=== PATIENT | male | born 1965 | race Caucasian/White ===

== ENCOUNTER → 2017-10-27 | Outpatient (CLI) | payer BC ==
--- NOTE | 2017-10-27 14:20 | MR ---
EXAMINATION TYPE: MR iac wo/w con DATE OF EXAM: 10/27/2017 COMPARISON: NONE HISTORY: Vertigo, Headache TECHNIQUE: Multiplanar, multisequence images of the brain and brainstem is performed without and with IV contras t, utilizing 8 mL intravenous Gadavist, small [id number] high-resolution images obtained through t he internal auditory canals. FINDINGS: Diffusion weighted images demonstrate no evidence of a recent infarct or other diffusion ab normality. There is no extra-axial fluid collection or significant white matter signal abnormality. The ventricular system and cisternal spaces are normal in size and appearance. The brain volume is age appropriate. Midline structures demonstrate normal morphology. The craniocervical junction appears within normal limits. Post contrast images demonstrate no abnormal enhancement. The dural venous sinuses appear pa tent. The visualized sinuses are remarkable for inflammatory change in the ethmoid air cells, and the globes are intact. Semicircular canals and cochlea show a symmetric appearance. IMPRESSION: No significant abnormality is evident within the brain, mild sinus disease
== END | disposition home or self-care (01) ==
LOC: RADMRIMAIN 11:39
PROVIDERS: ATTEND Otolaryngology
DX: R51 Headache (principal)
CPT/HCPCS: 70553; A9581

== ENCOUNTER 2020-09-19 10:21 | Day surgery (SDC) | payer BC, MEDICAID ==
[2020-09-18 08:54] VITALS: BMI 23.8
[~2020-09-19 10:21] MED LIST: LACTATED RINGERS 1,000 ML IV SCH; ONDANSETRON 4 MG/2 ML VIAL IVP PRN
[2020-09-19 10:52] VITALS: TEMP 98.3
[2020-09-19] MEDS ORDERED: LIDOCAINE 1% INJ 10MG/ML (20 ML MDV) ONE (11:56)
[2020-09-19] MEDS ORDERED: PROPOFOL 10 MG/ML 20 ML VIAL IV ONE (11:56)
--- NOTE | 2020-09-19 12:01 | P.GSHP ---
History of Present Illness H&P Date: 09/19/20 Chief Complaint: Epigastric pain, colon cancer screening 54-year-old male seen in the office one month ago. Patient has had complaints of bloating and abdominal pain. Feels fullness at times. Concerned about possibility of celiac disease. Family history of celiac. Family history of duodenal cancer as well. No rectal bleeding or melena. No significant change in bowel habits. He has not had a colonoscopy. Past Medical History Additional Past Medical History / Comment(s): upper abd. pain & feeling of fullness after eating, bloating for almost 3 months History of Any Multi-Drug Resistant Organisms: None Reported Past Surgical History: Orthopedic Surgery Additional Past Surgical History / Comment(s): finger & toe surgery when younger Past Anesthesia/Blood Transfusion Reactions: No Reported Reaction Smoking Status: Never smoker Medications and Allergies Home Medications Medication Instructions Recorded Confirmed Type No Known Home Medications 09/18/20 09/19/20 History Allergies Allergy/AdvReac Type Severity Reaction Status Date / Time No Known Allergies Allergy Verified 09/19/20 10:42 Surgical - Exam Vital Signs Temp Pulse Resp BP Pulse Ox 98.3 F 72 17 149/72 98 09/19/20 10:50 09/19/20 10:50 09/19/20 10:50 09/19/20 10:50 09/19/20 10:50 Physical exam: General: Well-developed, well-nourished HEENT: Normocephalic, sclerae nonicteric Abdomen: Nontender, nondistended Extremities: No edema Neuro: Alert and oriented Assessment and Plan (1) Colon cancer screening Narrative/Plan: Will proceed with upper and lower endoscopy Current Visit: Yes Status: Acute Code(s): Z12.11 - ENCOUNTER FOR SCREENING FOR MALIGNANT NEOPLASM OF COLON SNOMED Code(s): 176859442
--- NOTE | 2020-09-19 12:27 | P.PCN ---
Date of Procedure: 09/19/20 Procedure(s) Performed: PREOPERATIVE DIAGNOSIS: Epigastric pain, colon cancer screening POSTOPERATIVE DIAGNOSIS: Mild gastritis, mild duodenitis, rectal polyp 2 PROCEDURE: 1. EGD with biopsy 2. Colonoscopy with snare polypectomy ANESTHESIA: MAC SURGEON: Bassem Reilly M.D. SPECIMENS: Antrum, duodenum, rectal polyps ENDOSCOPIC PROCEDURE: The patient was on the endoscopy table in the left decubitus position. The Olympus gastroscope was inserted into the oropharynx and passed under direct visualization to the region of the third portion of the duodenum. From that point the scope was slowly withdrawn inspecting all surfaces carefully. There was minimal inflammatory changes in the duodenum. Biopsies of the first and second portion of the duodenum took place. The pylorus was widely patent. The stomach was carefully inspected. There was mild gastritis present. A biopsy of the antrum took place to rule out H. pylori. Retroflexion revealed a normal hiatus. The esophagus was then carefully examined. There were no neoplastic inflammatory or polypoid lesions throughout the visualized esophagus. The patient was kept on the endoscopy table in the left decubitus position. The Olympus colonoscope was inserted into the anus and passed under direct visualization to the base of the cecum. The appendiceal orifice was visualized. From that point the scope was slowly withdrawn inspecting all surfaces carefully. There were no neoplastic inflammatory or polypoid lesions throughout the cecum, ascending, transverse, descending, and sigmoid colon. The rectum there were 2 polyps noted both removed using the snare with cautery technique. These were present at about 8-10 cm. Digital rectal examination was normal. The patient was taken to the recovery room in stable condition per anesthesia guidelines. RECOMMENDATIONS: Await biopsy results.
[2020-09-19 12:33] VITALS: RESP 16
[2020-09-19 13:05] VITALS: BP 137/78; PULSE 67
== END 2020-09-19 13:06 | disposition home or self-care (01) ==
LOC: ORWHC2ENDO 10:21
PROVIDERS: ATTEND Surgery
DX: Z12.11 Encounter for screening for malignant neoplasm of colon (principal); K29.50 Unspecified chronic gastritis without bleeding; D12.8 Benign neoplasm of rectum; K29.80 Duodenitis without bleeding; M93.90 Osteochondropathy, unspecified of unspecified site
CPT/HCPCS: 88305; 45385; 43239; J2001; J2704